=== PATIENT | female | born 1945 | race Caucasian/White ===

== ENCOUNTER 2017-08-28 16:16 | Emergency (ER) | payer OTHER ==
[~2017-08-28] VITALS: Ht 162.6 cm; Wt 68.0 kg
[~2017-08-28 16:16] MED LIST: ACET-787 PO; CLON2TAB PO; FOLI1TAB19 PO; LISI-420 PO; METO50TE2 PO; MIRABULK PO; ORE25 PO; PANT40EC PO; SULF500T6 PO; SYN.075 PO
[2017-08-28 16:30] VITALS: BP 108/52
[2017-08-28] MEDS ORDERED: LIRA6SOL1 SQ (16:37)
[2017-08-28] MEDS ORDERED: GABA300C PO (16:37)
[2017-08-28] MEDS ORDERED: SITA25TA3 PO (16:37)
--- NOTE | 2017-08-28 16:50 | NUR ---
PATIENT PRESENTS TO ED WITH C/O right leg amputation infection; sent from Dr. Hernandez's office for evaluation .Dr. Kirby surgeon, surgery done in 2014;Hx OF DM, breast CA, right breast mastectomy, CVA (2008) . PT STATES DISCHARGES COMING OUT OF STUMP;DENIES ANY FEVER ,NUMBNESS/TINGLING SENSATION ON LT LEG. DENIES N/V/D; SKIN IS PINK/WARM/DRY; AAOX4; HR EVEN AND REGULAR; PT DENIES ANY CP, SOB, OR COUGH AT THIS TIME; PATIENT STATES PAIN OF 0/10 AT THIS TIME;PATIENT POSITIONED FOR COMFORT; HOB ELEVATED; BEDRAILS UP X2; BED DOWN. ER MD MADE AWARE OF PT STATUS.
[2017-08-28] MEDS ORDERED: ceFAZolin 1,000 MG VIAL IM ONE (18:00)
[2017-08-28 18:32] VITALS: BP 105/51
--- NOTE | 2017-08-28 18:32 | NUR ---
Patient discharged with v/s stable. Written and verbal after care instructions given and explained. Patient alert, oriented and verbalized understanding of instructions. Wheel Chair Assisted with to car. All questions addressed prior to discharge. ID band removed. Patient advised to follow up with PMD. Rx of CEPHALEXIN given. Patient educated on indication of medication including possible reaction and side effects. Opportunity to ask questions provided and answered.
== END 2017-08-28 18:32 | disposition home or self-care (01) ==
LOC: MED 16:16
DX: L03.115 Cellulitis of right lower limb (principal); E11.9 Type 2 diabetes mellitus without complications; Z85.3 Personal history of malignant neoplasm of breast; Z86.73 Personal history of transient ischemic attack (TIA), and cerebral infarction without residual deficits
CPT/HCPCS: 82948; 90471; 90715; 96372; 99284; J0690

== ENCOUNTER 2017-09-02 15:58 | Inpatient (IN) | payer OTHER ==
[~2017-09-02] VITALS: Ht 162.6 cm; Wt 68.0 kg
[~2017-09-02 15:58] MED LIST changes: -FOLI1TAB19 PO; +GABA300C PO; +LIRA6SOL1 SQ; -LISI-420 PO; -METO50TE2 PO; +SITA25TA3 PO; -SULF500T6 PO; -SYN.075 PO
[2017-09-02 16:35] VITALS: BP 105/85
[2017-09-02 18:39] LABS: BASOPHILS # (AUTO) 0.3 K/uL (0.00-0.22); BASOPHILS % (AUTO) 2.2 % (0.0-2.0); EOSINOPHILS # (AUTO) 0.3 K/uL (0-0.4); EOSINOPHILS % (AUTO) 2.4 % (0.0-4.0); HEMATOCRIT 37.1 % (36-48); HEMOGLOBIN 12.3 g/dL (12.0-16.0); LYMPHOCYTES # (AUTO) 3.2 K/uL (2.5-16.5); LYMPHOCYTES % (AUTO) 23.2 % (20.5-51.1); MEAN CORPUSCULAR HEMOGLOBIN 27 pg (27-31); MEAN CORPUSCULAR HGB CONC 33 g/dL (33-37); MEAN CORPUSCULAR VOLUME 80 fL (80-94); MONOCYTES # (AUTO) 0.6 K/uL (0.8-1.0); MONOCYTES % (AUTO) 4.2 % (1.7-9.3); NEUTROPHILS # (AUTO) 9.2 K/uL (1.8-7.7); PLATELET COUNT (AUTO) 293 K/uL (140-450); RED BLOOD CELL COUNT(AUTO) 4.62 MIL/uL (4.20-5.40); RED CELL DISTRIBUTION WIDTH 14.5 % (11.6-13.7); WHITE BLOOD COUNT (AUTO) 13.6 K/uL (4.8-10.8)
[2017-09-02 18:42] LABS: ANION GAP 14.6 (8-16); CARBON DIOXIDE 28.5 mmol/L (21-32); CREATININE 1.7 mg/dL (0.6-1.3); POTASSIUM 3.1 mmol/L (3.5-5.1)
[2017-09-02 18:49] LABS: ALBUMIN 2.9 g/dL (3.4-5.0); TOTAL BILIRUBIN 0.4 mg/dL (0.0-1.0)
[2017-09-02 18:54] LABS: PROTHROMBIN TIME 10.9 secs (10.8-13.4)
--- NOTE | 2017-09-02 20:11 | NUR ---
PT WHEELED IN TO ER BED 11
--- NOTE | 2017-09-02 21:00 | NUR ---
Pt came to ED c/o right stump pain 04/13. Pt states her PCP instructed her to seek ED assistance for redness and drainage to right stum. Right stump red, warm with 4cm round open area with thick white colored drainage. Pt states tenderness to left ankle. Left ankle has 3cm round black "scabbed-over" area that is unstagable. VSS. A&Ox4. ER aware. Continue to monitor.
[2017-09-02] MEDS ORDERED: cefTRIAXone 1,000 MG VIAL ONE (21:01)
[2017-09-02] MEDS ORDERED: ONDANSETRON 4 MG/2 ML VIAL IVP PRN (21:10)
[2017-09-02] MEDS ORDERED: DEXTROSE 50% 50 ML SYR IVP PRN (21:10)
[2017-09-02] MEDS ORDERED: VANCOMYCIN PER PHARMACY MC PRN (21:10)
[2017-09-02] MEDS ORDERED: HYDROcodone/APAP 5/325 MG 1 TAB TAB PO PRN (21:10)
--- NOTE | 2017-09-02 21:10 | NUR ---
Pt taken to floor at 2110 with Dario LOPEZ and Mega LOPEZ via [facility].
[2017-09-02] MEDS ORDERED: MORPHINE SULFATE 4 MG/ML SYR IVP ONE (21:20)
[2017-09-02 21:40] VITALS: BP 144/97
--- NOTE | 2017-09-02 21:40 | NUR ---
Admitted from ER TO MED SURGICAL UNIT , with chief complaint of PAIN, SWELLING, DISCHARGE IN THE RIGHT LEG BKA STARTED 5 DAYS AGO, BODY WEAKNESS. 72 y/o ,Female, Cooperative, AWAKE, A/OX4, RESPIRATION EVEN AND UNLABORED. LUNGS CLEAR ON BILATERAL AUSCULTATION. ABDOMEN SOFT WITH POSITIVE BOWEL SOUNDS, STATED ABLE TO HAVE BM EVERY OTHER DAY. IV SALINE LOCK AT THE LEFT HAND G22, PATENT AND INTACT. ABLE TO AMBULATE OCCASIONALLY WITH RIGHT LEG PROSTHESIS AND A WALKER AT HOME. HEAD TO TOE ASSESSMENT DONE WITH CHARGE NURSE TALYA, NOTED RIGHT LEG BKA WITH WOUND COVERED WITH DRESSING, LEFT FOOT WITH PITTING EDEMA 2+, BRUISE IN THE LATERAL SIDE OF LEFT LEG, PRESSURE ULCER AT THE LEFT ANKLE, NO DRAINAGE NOTED. PLAN OF CARE DISCUSSED, VERBALIZED UNDERSTANDING. PAIN IN THE RIGHT LEG 2/10, WAS GIVEN PAIN MED IN ER. SAFETY MEASURES ENFORCED. oriented to call light, bed, phone,television, bathroom, smoking policy, visiting hours, procedures, ID bracelet on. Belongings list checked.
--- NOTE | 2017-09-02 21:45 | NUR ---
Care tranfered to Cecilia LOPEZ in room 115. VSS. Staff and MD alanis.
[2017-09-02] MEDS ORDERED: VANCOMYCIN 1GM/DEXT 5% PREMIX 200 ML IV SCH (22:00)
--- NOTE | 2017-09-02 22:26 | NUR ---
Patient's Plan of Care was discussed and reviewed with BOWLING ALLEY FLOORS INSTALLER: TITI OLIVEIRA
[2017-09-02] MEDS ORDERED: VANCOMYCIN 1,000 MG VIAL ONE (23:19)
[2017-09-02] MEDS ORDERED: POTASSIUM CHLORIDE 10 MEQ TABER PO SCH (23:40)
[2017-09-02] MEDS ORDERED: clonazePAM 0.5 MG TAB PO SCH (23:40)
[2017-09-03] VITALS: BP 136/87
--- NOTE | 2017-09-03 | NUR ---
SLEEPING COMFORTABLY IN BED.
[2017-09-03] MEDS: HYDROcodone/APAP 10/325 MG 1 TAB TAB PO PRN ×4 (00:28→16:57)
[2017-09-03 04:00] VITALS: BP 110/66
--- NOTE | 2017-09-03 04:30 | NUR ---
ASSISTED TO USE BEDPAN, VOIDED 250 ML DARK YELLOW URINE.
[2017-09-03] MEDS: BLOOD GLUCOSE MONITORING 1 DEV DEV FS SCH ×4 (06:13→20:57)
--- NOTE | 2017-09-03 06:30 | NUR ---
CONDITION REMAIN STABLE. TOLERATED ALL IV ANTIBIOTICS GIVEN DURING SHIFT. WILL ENDORSE TO AM NURSE FOR CONTINUITY OF CARE.
[2017-09-03 07:12] LABS: BASOPHILS # (AUTO) 0.1 K/uL (0.00-0.22); BASOPHILS % (AUTO) 1.4 % (0.0-2.0); EOSINOPHILS # (AUTO) 0.5 K/uL (0-0.4); EOSINOPHILS % (AUTO) 5.6 % (0.0-4.0); HEMATOCRIT 32.3 % (36-48); HEMOGLOBIN 10.9 g/dL (12.0-16.0); LYMPHOCYTES # (AUTO) 1.5 K/uL (2.5-16.5); LYMPHOCYTES % (AUTO) 17.7 % (20.5-51.1); MEAN CORPUSCULAR HEMOGLOBIN 27 pg (27-31); MEAN CORPUSCULAR HGB CONC 34 g/dL (33-37); MEAN CORPUSCULAR VOLUME 80 fL (80-94); MONOCYTES # (AUTO) 0.6 K/uL (0.8-1.0); NEUTROPHILS # (AUTO) 5.9 K/uL (1.8-7.7); NEUTROPHILS % (AUTO) 68.3 % (42.2-75.2); PLATELET COUNT (AUTO) 281 K/uL (140-450); RED BLOOD CELL COUNT(AUTO) 4.04 MIL/uL (4.20-5.40); RED CELL DISTRIBUTION WIDTH 14.5 % (11.6-13.7); WHITE BLOOD COUNT (AUTO) 8.6 K/uL (4.8-10.8)
--- NOTE | 2017-09-03 07:15 | NUR ---
ENDORSED TO JOHN GALINDO FOR CONTINUITY OF CARE.
--- NOTE | 2017-09-03 07:16 | NUR ---
REPORT RECEIVED FROM X [employer] WIRING TECHNICIAN NURSE AT BEDSIDE FOR CONTINUITY OF CARE. PATIENT AWAKE, A/OX4, RESPIRATION EVEN AND UNLABORED. LUNGS CLEAR ON BILATERAL AUSCULTATION. ABDOMEN SOFT WITH POSITIVE BOWEL SOUNDS, IV SALINE LOCK #22 TO L HAND, PATENT AND INTACT. ABLE TO AMBULATE OCCASIONALLY WITH RIGHT LEG PROSTHESIS AND A WALKER AT HOME. NOTED RIGHT LEG BKA WITH WOUND COVERED WITH DRESSING, LEFT FOOT WITH PITTING EDEMA 2+, BRUISE IN THE LATERAL SIDE OF LEFT LEG, PRESSURE ULCER AT THE LEFT ANKLE, NO DRAINAGE NOTED. PLAN OF CARE DISCUSSED, PATIENT VERBALIZED UNDERSTANDING. PATIENT DENIES PAIN. SAFETY AND ISOLATION PRECAUTIONS IN PLACE, BED ON LOWEST SETTING, BED ALARM ON, CALL LIGHT WITHIN REACH. WILL CONTINUE TO MONITOR PATIENT.
[2017-09-03 07:43] LABS: ANION GAP 13.8 (8-16); CARBON DIOXIDE 28.7 mmol/L (21-32); POTASSIUM 3.5 mmol/L (3.5-5.1)
[2017-09-03 08:00] VITALS: BP 107/58
[2017-09-03 08:24] LABS: CREATININE 1.4 mg/dL (0.6-1.3)
--- NOTE | 2017-09-03 09:14 | NUR ---
PATIENT HAS BEEN SCREENED AND CATEGORIZED MODERATE NUTRITION RISK. PATIENT WILL BE SEEN WITHIN 3-5 DAYS OF ADMISSION. 09/04/17-09/06/[address] Addendum: 09/05/17 at [address] PATIENT HAS BEEN SCREENED AND CATEGORIZED MODERATE NUTRITION RISK. PATIENT WILL BE SEEN WITHIN 3-5 DAYS OF ADMISSION. 09/04/17-09/06/[address]
[2017-09-03] MEDS: ENOXAPARIN 30 MG/0.3 ML SYR SUBQ SCH (09:38)
[2017-09-03] MEDS: PANTOPRAZOLE 40 MG TABEC PO SCH (09:41)
[2017-09-03] MEDS: GABAPENTIN 300 MG CAP PO SCH ×2 (09:41→21:02)
[2017-09-03] MEDS: HYDROCHLOROTHIAZIDE 25 MG TAB PO SCH (09:41)
--- NOTE | 2017-09-03 10:27 | NUR ---
FAXED INITIAL REVIEW TO [facility] [place] [phone]. CONFIRMED WITH CEDRIC PHONE [phone] FAXED INITIAL REVIEW TO [facility] [phone] CONFIRMED WITH ANGELIA PHONE [phone]
--- NOTE | 2017-09-03 10:54 | NUR ---
PATIENT C/O PAIN 6/10 D/T BACK AND RIGHT STUMP. NORCO PRN MEDICATED. PATIENT TOLERATED IT WELL. SAFETY AND ISOLATION PRECAUTION IN PLACE, BED ON LOWEST SETTING, BED ALARM ON, CALL LIGHT WITHIN REACH, WILL CONTINUE TO MONITOR PATIENT.
--- NOTE | 2017-09-03 12:25 | NUR ---
DR. OLIVEROS IN TO ASSESS THE PATIENT. WILL AWAIT UPDATED ORDERS.
--- NOTE | 2017-09-03 13:33 | NUR ---
Pharmacy Benefit Manager note: I Attempted to contact (Yee) Patient's Home Health provider to confirm company name and office information and contact number. Yee was not available and left her a voicemail MSG with my contact information and requesting a call back.
--- NOTE | 2017-09-03 13:38 | NUR ---
Yee from [facility] call me back and confirm Agency name, office contact information, and services provided to Patient 1x per week. [facility] office number is . I thank her for information, call back and ended call.
[2017-09-03] MEDS: NACL 0.9% 1,000 ML IV SCH (13:50)
--- NOTE | 2017-09-03 14:55 | NUR ---
PATIENT REQUESTED CRACKERS AND PEANUT BUTTER FOR A SNACK. VERIFIED WITH THE STEAM HAMMER OPERATOR, PATIENT GIVEN SNACK.
--- NOTE | 2017-09-03 14:57 | NUR ---
[facility] request to be transfer to [facility] to coordinate Patient's transportation back home for 09/04/17 as she will possibly be discharge. Per Marybeth, Patient has to call and make arrangements. I informed Marybeth My role in the hospital as contact worker and the importance of coordinating patient's services and transport back home after she is discharge. Marybeth stated that she will transfer me to the transportation department and prompt me to leave a message with my contact number if department do not answer so they call back to set a time. No answer from transportation department; I left a Massage and ended call.
--- NOTE | 2017-09-03 15:25 | NUR ---
PATIENT GETTING US OF THE KIDNEYS, WILL AWAIT RESULTS.
[2017-09-03] MEDS: MORPHINE SULFATE 4 MG/ML SYR IVP PRN (15:41)
[2017-09-03] MEDS: INSULIN LISPRO SLIDING SCALE 100 UNITS/ML VIAL SUBQ PRN (16:54)
--- NOTE | 2017-09-03 17:10 | NUR ---
PATIENT LEFT HAND IV INFILTRATED, NEW LEFT HAND IV #20G, INTACT, ASYMPTOMATIC, AND PATENT. PATIENT TOLERATED INSERTION WELL. SAFETY AND ISOLATION PRECAUTIONS IN PLACE, CALL LIGHT WITHIN REACH. WILL CONTINUE TO MONITOR PATIENT.
--- NOTE | 2017-09-03 19:25 | NUR ---
REPORT GIVEN TO HARNESS CUTTER NURSE AT BEDSIDE FOR CONTINUITY OF CARE. PATIENT IN STABLE CONDITION.
--- NOTE | 2017-09-03 19:30 | NUR ---
ASSUMED CARE OF PATIENT, AWAKE, ALERT AND ORIENTED. NO COMPLAINS. FOURDRINIER MACHINE OPERATOR AT BEDSIDE FOR PERICARE AND REPOSITIONED. CALL LIGHT WITHIN REACH.
--- NOTE | 2017-09-03 21:00 | NUR ---
DUE MEDS GIVEN. PLAN OF CARE DISCUSSED WITH PATIENT, VERBALIZED UNDERSTANDING WELL. CALL LIGHT WITHIN REACH.
[2017-09-03] MEDS: clonazePAM 0.5 MG TAB PO SCH (21:01)
[2017-09-03] MEDS: VANCOMYCIN 500 MG in NACL 0.9% 100 ML IV SCH (23:02)
[2017-09-03 23:41] VITALS: BP 123/67
--- NOTE | 2017-09-04 | NUR ---
DR. ROSEN AT BEDSIDE TO SEE PATIENT. ASLEEP EASILY AROUSABLE. AFEBRILE. VITAL SIGNS STABLE. CALL LIGHT WITHIN REACH.
[2017-09-04] MEDS: MORPHINE SULFATE 4 MG/ML SYR IVP PRN ×3 (01:31→21:03)
[2017-09-04] MEDS: NACL 0.9% 1,000 ML IV SCH (01:40)
[2017-09-04] MEDS: BLOOD GLUCOSE MONITORING 1 DEV DEV FS SCH ×4 (05:38→20:19)
[2017-09-04 06:17] LABS: BASOPHILS # (AUTO) 0.1 K/uL (0.00-0.22); BASOPHILS % (AUTO) 1.3 % (0.0-2.0); EOSINOPHILS # (AUTO) 0.4 K/uL (0-0.4); EOSINOPHILS % (AUTO) 5.1 % (0.0-4.0); HEMATOCRIT 33.6 % (36-48); HEMOGLOBIN 11.1 g/dL (12.0-16.0); LYMPHOCYTES # (AUTO) 1.9 K/uL (2.5-16.5); LYMPHOCYTES % (AUTO) 23.1 % (20.5-51.1); MEAN CORPUSCULAR HEMOGLOBIN 27 pg (27-31); MEAN CORPUSCULAR HGB CONC 33 g/dL (33-37); MEAN CORPUSCULAR VOLUME 80 fL (80-94); MONOCYTES # (AUTO) 0.5 K/uL (0.8-1.0); NEUTROPHILS # (AUTO) 5.2 K/uL (1.8-7.7); NEUTROPHILS % (AUTO) 64.5 % (42.2-75.2); PLATELET COUNT (AUTO) 285 K/uL (140-450); RED BLOOD CELL COUNT(AUTO) 4.19 MIL/uL (4.20-5.40); RED CELL DISTRIBUTION WIDTH 14.3 % (11.6-13.7); WHITE BLOOD COUNT (AUTO) 8.1 K/uL (4.8-10.8)
[2017-09-04 06:26] LABS: ALBUMIN 2.4 g/dL (3.4-5.0); ANION GAP 13.3 (8-16); CARBON DIOXIDE 28.5 mmol/L (21-32); CREATININE 1.2 mg/dL (0.6-1.3); POTASSIUM 3.8 mmol/L (3.5-5.1); TOTAL BILIRUBIN 0.2 mg/dL (0.0-1.0)
--- NOTE | 2017-09-04 07:27 | NUR ---
RECEIVED REPORT FROM SENIOR TRAINING SPECIALIST RN. PATIENT IS AAOX4, RESPIRATORY EFFORT IS EVEN AND UNLABORED. NO SIGNS AND SYMPTOMS OF ACUTE DISTRESS NOTED AT THIS TIME. HAS PROSTHESIS AT THE BEDSIDE. RIGHT BKA. HAS IV TO LEFT HAND 20G, INFUSING NS AT 75ML. SITE IS CLEAN, DRY, PATENT AND INTACT. BED IN LOWEST POSITION, SIDE RAILS UP X2, CALL LIGHT PLACED WITHIN REACH. WILL CONTINUE TO MONITOR.
--- NOTE | 2017-09-04 07:27 | NUR ---
ENDORSED CARE AT BEDSIDE WITH SMITH RN, PATIENT IN STABLE CONDITION.
[2017-09-04 08:00] VITALS: BP 126/76
--- NOTE | 2017-09-04 08:00 | NUR ---
WOUND CARE EVALUATION NOTE: REASON FOR EVALUATION: RIGHT BKA STUMP WOUND AND LEFT ANKLE PRESSURE ULCER COMPLETE SKIN ASSESSMENT DONE ON THIS 72 Y/O FEMALE PATIENT ADMITTED TO [facility], WITH INITIAL DIAGNOSIS OF RIGHT STUMP REDNESS WITH DISCHARGE. PAST MEDICAL HISTORY INCLUDE OM S/P RIGHT BKA, CAD, HTN, DM AND RIGHT BREAST CA WITH HX OF MASTECTOMY. ALL ABOVE INFORMATION WAS OBTAINED FROM THE ADMISSION H&P AND PT. PT IS AAX4. LABS ARE WBC 8.1, H/H 11.3/33.6, GLUCOSE 151 AND ALBUMIN 2.4. PATIENT'S SKIN WARM TO TOUCH WNL, SKIN TURGOR GOOD. LEFT FOOT CAPILLARY REFILLED <3 SEC. TOENAILS ARE SHORT AND THICKENED, NO HAIR GROWTH, LEFT DORSAL PEDAL PULSES PRESENT. PT. NEED ASSIST TO BR. INITIAL PLAN OF CARE DISCUSSED WITH PRIMARY RN AND PT. PT VERBALIZE UNDERSTANDING. INTEGUMENTARY: BILATERAL LOWER EXTREMITIES -DRYNESS RIGHT BKA STUMP PRESSURE ULCER INJURY POSSIBLE FROM BOOKKEEPING MACHINE MECHANIC, UN-STAGEABLE 2X2 CM DEPTH UTD, YELLOW SLOUGH WITH SURROUNDING REDNESS 3X2.5CM AND FURTHER DAMAGE INDICATED LEFT ANKLE PRESSURE ULCER INJURY UN-STAGEABLE 2.5X3 CM DEPTH UTD, DRY SCAB WITH SURROUNDING REDNESS 3X3CM FURTHER DAMAGE INDICATED LEFT BUTTOCK MOISTURE ASSOCIATE DERMATITIS 1.5X1 CM RIGHT BUTTOCK MOISTURE ASSOCIATE [id number] CM LEFT TOE AMPUTATION WITH OLD HEALED SURGICAL SCAR RECOMMENDATIONS: -SURGEON TO CONSULT RIGHT STUMP -CLEANSE RIGHT STUMP WITH NS. PAT DRY APPLY THERAHONEY COVER WITH DRY DRESSING QD AND PRN IF SOILING -CLEANSE LEFT ANKLE RY SCAB WITH NS, PAT DRY, PAINT WITH BETADINE MONSERRAT. BID AND LEAVE OPEN TO AIR -APPLY HYDRAGUARD TO BLE DRYNESS AREAS BID WC AND LEAVE IT OPEN TO AIR -CLEANSE L/R BUTTOCKSMAD WITH SOAP AND WATER, PAT DRY AND APPLY Z-GUARD AND COVER WITH OPTIFORM QD AND PRN IF SOILING -TURN AND REPOSITION PATIENT Q 2H -ASSESS AND MONITOR SKIN CONDITION DURING POSITION CHANGE, PLEASE PAY PARTICULAR ATTENTION HEELS -OFFLOAD BILATERAL HEELS BY PLACING PILLOWS UNDER CALVES AT ALL TIMES, UNLESS OTHERWISE CONTRAINDICATED -PRESSURE REDISTRIBUTION SURFACE THERAPY -PODIATRY CONSULT -KEEP SKIN CLEAN AND DRY AT ALL TIMES. MAY APPLY BODY LOTION TO DRYNESS AREA. RECOMMENDATIONS DISCUSSED WITH PRIMARY RN WILL FOLLOW UP PATIENT Q7- 10 DAYS AND PRN. PLEASE CONTACT WOUND CARE NURSE FOR ANY CONCERNS, QUESTIONS AND CHANGES IN SKIN CONDITION.
[2017-09-04] MEDS: GABAPENTIN 300 MG CAP PO SCH ×2 (09:14→20:16)
[2017-09-04] MEDS: HYDROCHLOROTHIAZIDE 25 MG TAB PO SCH (09:15)
[2017-09-04] MEDS: PANTOPRAZOLE 40 MG TABEC PO SCH (09:16)
[2017-09-04] MEDS: ENOXAPARIN 30 MG/0.3 ML SYR SUBQ SCH (09:21)
[2017-09-04] MEDS ORDERED: THERAHONEY GEL 42.5 GM TP PRN (11:50)
[2017-09-04] MEDS ORDERED: Z-GUARD PASTE TP PRN (11:50)
[2017-09-04] MEDS: Z-GUARD PASTE TP SCH (13:00)
[2017-09-04] MEDS: THERAHONEY GEL 42.5 GM TP SCH (13:00)
[2017-09-04] MEDS: HYDRAGUARD CREAM TP SCH (13:00)
[2017-09-04] MEDS: NACL 0.9% IRR 250 ML BOTTLE IR SCH (13:00)
--- NOTE | 2017-09-04 14:17 | NUR ---
CM NOTE CONCURRENT REVIEW FAXED TO [facility] (FAX# [phone], ATTN: CEDRIC [phone]) AND [facility] (FAX# [phone], ATTN: ANGELIA [phone] X [phone])
--- NOTE | 2017-09-04 14:24 | NUR ---
CM NOTE SPOKE W/ SOPHIE STEELE FOR [facility] (# [phone]). MADE AWARE OF DISCHARGE PLAN TO SNF FOR WOUND CARE. WILL FAX LIST OF CONTRACTED FACILITIES; WAS PREVIOUSLY AT [facility].
--- NOTE | 2017-09-04 15:48 | NUR ---
SOPHIE WEBSTER FAXED CLINICAL INFORMATION TO [facility] / FAX# [phone], ATTN: DANYEL #[phone] FAXED CLINICAL INFORMATION TO [facility] / FAX# [phone], ATTN: TAMI #[phone] FAXED CLINICAL INFORMATION TO [facility] / FAX# [phone], ATTN: JOVANNI #[phone]
[2017-09-04 16:00] VITALS: BP 129/79
--- NOTE | 2017-09-04 19:28 | NUR ---
ENDORSED PATIENT TO CHAPERON NURSE FOR CONTINUITY OF CARE. PATIENT IN STABLE CONDITION.
--- NOTE | 2017-09-04 19:29 | NUR ---
Patient's Plan of Care was discussed and reviewed with RESIDENTIAL SUPPORT SPECIALIST: CARL WILKINSON
--- NOTE | 2017-09-04 19:40 | NUR ---
PATIENT IS CURRENTLY RESTING IN BED ASSISTED TO USE THE BEDPAN PATIENT HAS A RT BKA COVERED WITH A DRESSING AND HAS A DRESSING. PATIENT'S LEFT ANKLE HAS A WOUND THAT IS DRY AND UNSTAGEABLE.PATIENT HAS A DRESSING TO LEFT UPPER BUTTOCK CURRENTLY DRY AND INTACT. PATIENT EDUCATED TO TURN AND REPOSITION PATIENT IS ABLE TO FOLLOW DIRECTIONS.OFFLOADING DONE WITH PILLOWS.IVF INFUSING WELL WILL CONTINUE TO MONITOR.
[2017-09-04 20:00] VITALS: BP 124/62
[2017-09-04] MEDS: clonazePAM 0.5 MG TAB PO SCH (20:19)
[2017-09-04] MEDS: INSULIN LISPRO SLIDING SCALE 100 UNITS/ML VIAL SUBQ PRN (20:21)
--- NOTE | 2017-09-04 20:30 | NUR ---
PATIENT CONTINUES TO BE ASSISTED WITH THE BEDPAN GOOD PERICARE GIVEN. CALL LIGHT WITHIN REACH WILL CONTINUE TO MONITOR.
--- NOTE | 2017-09-04 21:44 | NUR ---
PATIENT WAS TAKEN FOR CT PROCEDURE MARIANELA TOOK THE PATIENT.
--- NOTE | 2017-09-04 22:00 | NUR ---
PATIENT BROUGHT BACK FROM CT TEST AND BACK IN ROOM.
[2017-09-04] MEDS: VANCOMYCIN 500 MG in NACL 0.9% 100 ML IV SCH (22:47)
[2017-09-04] MEDS: HYDROcodone/APAP 10/325 MG 1 TAB TAB PO PRN (23:01)
--- NOTE | 2017-09-04 23:55 | NUR ---
I RECEIVED THE FAX REPORT FOR CT EXT LOWER AND I CALLED [employer] AND PAGED MD DELAROSA MACHINIST OUTSIDE FOR MD OLIVEROS EARLIER. CURRENTLY MD DELAROSA CALLED ME BACK AND I INFORMED HIM AND READ TO HIM THE RADIOLOGY REPORT AND ARSH AWARE AND GAVE NO NEW ORDER.
--- NOTE | 2017-09-05 00:41 | NUR ---
PATIENT IS CURRENTLY NPO AT THIS TIME. SLEEPING IN BED,IVF INFUSING WELL.CALL LIGHT WITHIN REACH.
[2017-09-05] MEDS: Z-GUARD PASTE TP SCH ×2 (01:11→13:50)
[2017-09-05] MEDS: HYDRAGUARD CREAM TP SCH ×2 (01:11→13:48)
[2017-09-05] MEDS: NACL 0.9% IRR 250 ML BOTTLE IR SCH ×2 (01:12→13:00)
--- NOTE | 2017-09-05 02:10 | NUR ---
PATIENT SLEEPING QUIETLY REMAINS NPO. NEEDS MET.CALL LIGHT WITHIN REACH.
--- NOTE | 2017-09-05 02:35 | NUR ---
PATIENT IS ASLEEP IN BED AT THIS TIME. NEEDS MET WILL CONTINUE TO MONITOR.CALL LIGHT WITHIN REACH.
--- NOTE | 2017-09-05 04:55 | NUR ---
PATIENT WAS CLEANED BEDDING CHANGED WITH THE ASSISTANCE OF ASHLEY PADRON. PATIENT HAS PERIODS OF FORGETFULNESS AND NOT KNOWING WHERE SHE IS.PATIENT WAS REORIENTED TO REALITY AND EDUCATED NOT TO GET OUT OF BE FOR HER SAFETY.WILL CONTINUE TO MONITOR.
[2017-09-05 05:00] VITALS: BP 156/66
--- NOTE | 2017-09-05 06:00 | NUR ---
PATIENT STABLE WATCHING TV SLEEPING ON AND OFF PATIENT IS AWARE SHE WILL HAVE PROCEDURE BEFORE 9AM THIS MORNING AND CONTINUES TO BE NPO.
[2017-09-05] MEDS: BLOOD GLUCOSE MONITORING 1 DEV DEV FS SCH ×4 (06:53→20:47)
[2017-09-05 07:02] LABS: BASOPHILS # (AUTO) 0.3 K/uL (0.00-0.22); BASOPHILS % (AUTO) 3.8 % (0.0-2.0); EOSINOPHILS # (AUTO) 0.5 K/uL (0-0.4); EOSINOPHILS % (AUTO) 5.2 % (0.0-4.0); HEMATOCRIT 33.9 % (36-48); HEMOGLOBIN 11.3 g/dL (12.0-16.0); LYMPHOCYTES # (AUTO) 2.2 K/uL (2.5-16.5); LYMPHOCYTES % (AUTO) 25.2 % (20.5-51.1); MEAN CORPUSCULAR HEMOGLOBIN 26 pg (27-31); MEAN CORPUSCULAR HGB CONC 33 g/dL (33-37); MEAN CORPUSCULAR VOLUME 79 fL (80-94); MONOCYTES # (AUTO) 0.5 K/uL (0.8-1.0); MONOCYTES % (AUTO) 5.5 % (1.7-9.3); NEUTROPHILS # (AUTO) 5.4 K/uL (1.8-7.7); NEUTROPHILS % (AUTO) 60.3 % (42.2-75.2); PLATELET COUNT (AUTO) 263 K/uL (140-450); RED BLOOD CELL COUNT(AUTO) 4.28 MIL/uL (4.20-5.40); RED CELL DISTRIBUTION WIDTH 14.2 % (11.6-13.7); WHITE BLOOD COUNT (AUTO) 8.9 K/uL (4.8-10.8)
--- NOTE | 2017-09-05 07:13 | NUR ---
REPORT ENDORSED TO JOHN SMITH SHE WILL RESUME CARE OF THE PATIENT.CALL LIGHT WITHIN REACH.
--- NOTE | 2017-09-05 07:14 | NUR ---
RECEIVED REPORT FROM JET ENGINE MECHANIC RN. PATIENT IS AAOX4, RESPIRATORY EFFORT IS EVEN AND UNLABORED. NO SIGNS AND SYMPTOMS OF ACUTE DISTRESS NOTED AT THIS TIME. HAS PROSTHESIS AT THE BEDSIDE. RIGHT BKA. HAS IV TO LEFT HAND 20G, INFUSING NS AT 75ML. SITE IS CLEAN, DRY, PATENT AND INTACT. BED IN LOWEST POSITION, SIDE RAILS UP X2, CALL LIGHT PLACED WITHIN REACH. WILL CONTINUE TO MONITOR.
[2017-09-05 07:15] LABS: ALBUMIN 2.5 g/dL (3.4-5.0); ANION GAP 12.2 (8-16); CARBON DIOXIDE 28.4 mmol/L (21-32); CREATININE 1.2 mg/dL (0.6-1.3); POTASSIUM 3.6 mmol/L (3.5-5.1); TOTAL BILIRUBIN 0.2 mg/dL (0.0-1.0)
[2017-09-05 08:00] VITALS: BP 128/73
[2017-09-05] MEDS: PANTOPRAZOLE 40 MG TABEC PO SCH (08:00)
[2017-09-05] MEDS: ENOXAPARIN 30 MG/0.3 ML SYR SUBQ SCH (09:00)
[2017-09-05] MEDS: GABAPENTIN 300 MG CAP PO SCH ×2 (09:00→20:48)
[2017-09-05] MEDS: HYDROCHLOROTHIAZIDE 25 MG TAB PO SCH (09:00)
[2017-09-05] MEDS ORDERED: BUPIVACAINE-MPF 0.25% 30 ML VIAL INJ ONE (09:04)
[2017-09-05] MEDS ORDERED: BACITRACIN 50000 UNITS/1 VIAL ONE (09:04)
[2017-09-05] MEDS ORDERED: ONDANSETRON 4 MG/2 ML VIAL ONE (09:10)
[2017-09-05] MEDS ORDERED: PROPOFOL 200 MG/20 ML VIAL IV ONE (09:10)
[2017-09-05] MEDS ORDERED: MIDAZOLAM 2 MG/2 ML VIAL ONE (09:10)
[2017-09-05] MEDS ORDERED: DEXAMETHASONE 4 MG/ML VIAL ONE (09:10)
[2017-09-05] MEDS ORDERED: SEVOFLURANE 250 ML BTL INH ONE (09:10)
[2017-09-05] MEDS ORDERED: MEPERIDINE 50 MG/ML SYR ONE (09:11)
[2017-09-05] MEDS ORDERED: fentaNYL 0.05 MG/ML VIAL ONE (09:11)
[2017-09-05] MEDS: NACL 0.9% 1,000 ML IV SCH ×2 (09:49→20:36)
[2017-09-05] MEDS ORDERED: ONDANSETRON 4 MG/2 ML VIAL IVP PRN (09:50)
[2017-09-05] MEDS ORDERED: diphenhydrAMINE 50 MG/ML VIAL IVP PRN (09:50)
[2017-09-05] MEDS ORDERED: HYDROmorphone 1 MG/ML AMP IVP PRN (09:50)
[2017-09-05] MEDS: MEPERIDINE 25 MG/ML SYR IVP PRN ×4 (10:38→11:08)
[2017-09-05] MEDS ORDERED: MEPERIDINE 25 MG/ML SYR ONE ×2 (10:38→10:56)
--- NOTE | 2017-09-05 10:57 | NUR ---
[facility]ED [facility] [phone] PHONE CEDRIC [phone] FAXED CONCURRENT REVIEW TO [facility] [phone] PHONE ANGELIA [phone] RECEIVED A CALL FROM ANDREW FROM [facility] ([facility]. THEY CAN ACCEPT THE PATIENT SPOKE WITH DANYEL FROM [facility], THEY ARE REVIEWING THE INQUIRY.
--- NOTE | 2017-09-05 11:25 | NUR ---
PATIENT ARRIVED ON UNIT FROM SURGERY. HAS SUTURE AND CHANDA ON STUMP, WRAPPED IN BANDAGE AND IRLANDA WRAP, A SOCK WAS APPLIED TO HOLD DRESSING IN PLACE. PATIENTS VITAL SIGNS ARE STABLE, NO SIGNS AND SYMPTOMS OF ACUTE DISTRESS NOTED AT THIS TIME. WILL CONTINUE TO MONITOR.
--- NOTE | 2017-09-05 11:54 | NUR ---
SPOKE WITH ANDREW FROM [facility],([place]). THE PATIENT CAN GO TO ROOM 21A UNDER DR[address] WESTON. PHONE [phone]. ANDREW FROM [facility] SAID SHE WOULD NEED AN AUTH [employer] [facility]. I CALLED [facility] AND SPOKE WITH CEDRIC AND INFORMED HER. SHE SAID SHE WOULD CALL [facility], CEDRIC ,PHONE [phone]. I SPOKE WITH CEDRIC AND SHE SAID FOR TRANSPORT, USE WITH [employer] OR [employer]. NO AUTH NEEDED PER CEDRIC.
[2017-09-05] MEDS ORDERED: HYDROmorphone PFS 2 MG/ML SYR IVP PRN (12:26)
[2017-09-05] MEDS: MORPHINE SULFATE 4 MG/ML SYR IVP PRN ×2 (12:28→20:49)
[2017-09-05] MEDS: THERAHONEY GEL 42.5 GM TP SCH (13:00)
[2017-09-05] MEDS: INSULIN LISPRO SLIDING SCALE 100 UNITS/ML VIAL SUBQ PRN ×3 (13:43→20:50)
--- NOTE | 2017-09-05 14:51 | NUR ---
RECEIVED A CALL FROM ANDREW FROM [facility]. SHE SAID SHE RECEIVED THE AUTH FROM [employer]. I GAVE ANDREW THE PHONE NUMBER TO THE FLOOR. [facility] [address] [place] [id number] PHONE [phone]. WHEN DISCHARGED, SHE CAN GO TO ROOM 21A UNDER . CEDRIC FROM [employer], [id number] , SAID FOR TRANSPORT USE EITHER [facility] OR [employer] AND SHE SAID NO AUTH NEEDED.
[2017-09-05 16:00] VITALS: BP 124/71
--- NOTE | 2017-09-05 17:14 | NUR ---
I spoke to patient to inform her about plan to be discharge to a [facility] nursing facility and been accepted at [facility]. Patient stated feeing positive, about SNF and feels is the better choice for her care and progress. Patient thank me.
[2017-09-05] MEDS: HYDROcodone/APAP 10/325 MG 1 TAB TAB PO PRN (17:25)
[2017-09-05] MEDS ORDERED: VANCOMYCIN 750 MG in DEXTROSE 5% 250 ML IV SCH (18:00)
--- NOTE | 2017-09-05 19:25 | NUR ---
ENDORSED PATIENT TO BRIEFCASE SEWER RN FOR CONTINUITY OF CARE. PATIENT IN STABLE CONDITION.
--- NOTE | 2017-09-05 19:30 | NUR ---
RECEIVED REPORT FROM AM NURSE. PT RESTING IN BED, AOX4, BEDREST AT THIS TIME, ABLE TO VERBALIZE NEEDS. PT IS S/P R BKA REVISION, DRESSING CLEAN DRY AND INTACT, ELEVATED WITH PILLOWS. L FOOT WOUND NOTED, HEEL PROTECTOR IN PLACE. IV ACCESS ASYMPTOMATIC, PATENT AND INTACT. IVF INFUSING WELL. DISCUSSED PLAN OF CARE WITH PT. PT VERBALIZED UNDERSTANDING. ALL NEEDS MET. SAFETY MEASURES ENSURED. CALL LIGHT WITHIN REACH.
[2017-09-05 20:00] VITALS: BP 113/53
[2017-09-05] MEDS: CEFEPIME 1,000 MG in DEXTROSE 5% 50 ML IV SCH (20:47)
[2017-09-05] MEDS: clonazePAM 0.5 MG TAB PO SCH (20:49)
--- NOTE | 2017-09-05 20:55 | NUR ---
BLOOD GLUCOSE 210, ADMINISTERED INSULIN COVERAGE WITH EVENING SNACK AND EDUCATION. PT C/O R STUMP PAIN, ADMINISTERED MORPHINE IVP PRN ORDERED WITH EDUCATION. ADMINISTERED REMAINING DUE MEDS WITH EDUCATION. PT VERBALIZED UNDERSTANDING, TOLERATED MEDS WELL. ALL NEEDS MET. IVPB INFUSING WELL. SAFETY MEASURES ENSURED. CALL LIGHT WITHIN REACH.
--- NOTE | 2017-09-05 22:00 | NUR ---
DR ROSEN AT BEDSIDE TO SPEAK WITH PT. SPOKE WITH PT REGARDING CONTINUED IV SNF ABX FOR 6 WEEKS, PT WILL NEED PICC LINE INSERTION ORDERED. CHARGE NURSE MADE AWARE, CAUSTIC OPERATOR TO CALL PICC LINE NURSE.
[2017-09-06] VITALS: BP 105/61
[2017-09-06] MEDS: Z-GUARD PASTE TP SCH ×2 (00:50→12:24)
[2017-09-06] MEDS: NACL 0.9% IRR 250 ML BOTTLE IR SCH ×2 (00:50→12:23)
[2017-09-06] MEDS: HYDRAGUARD CREAM TP SCH ×2 (00:50→12:24)
--- NOTE | 2017-09-06 00:51 | NUR ---
PT RESTING COMFORTABLY, SPO2 95% ON ROOM AIR, RR 18 EVEN AND UNLABORED. SACRAL WOUND CLEANSED, Z-GUARD APPLIED, COVERED WITH OPTIFOAM. L FOOT WOUND CLEANSED WITH NS AND GAUZE, PAT DRY, BETADINE APPLIED, DESKTOP OPERATOR. UNABLE TO FIND HYDRAGUARD FOR BLE DRYNESS. ASSISTED PT TO TURN AND REPOSITION SELF, PT TOLERATED WELL. ALL NEEDS MET. IVF INFUSING WELL. SAFETY MEASURES ENSURED.
--- NOTE | 2017-09-06 04:17 | NUR ---
PT ASSISTED TO BEDPAN BY ROOFING PLANT SUPERVISOR, PT TOLERATED WELL. IV ACCESS INFILTRATED, L HAND/WRIST SWELLING NOTED, WILL MONITOR. IV REMOVED, CANNULA INTACT. ALL NEEDS MET. SAFETY MEASURES ENSURED. CALL LIGHT WITHIN REACH.
[2017-09-06] MEDS: NACL 0.9% 1,000 ML IV SCH ×2 (05:35→15:49)
[2017-09-06] MEDS: MORPHINE SULFATE 4 MG/ML SYR IVP PRN ×3 (05:35→20:24)
--- NOTE | 2017-09-06 05:40 | NUR ---
NEW IV 24G INSERTED ON L FA, PT TOLERATED WELL. PT C/O R STUMP PAIN, ADMINISTERED MORPHINE IVP 4MG IVP PRN ORDERED WITH EDUCATION. PT REQUESTING TO SHOWER, MADE PT AWARE THAT DR LOCKHART STILL NEEDS TO SEE HER STUMP TODAY, WILL ENDORSE TO AM NURSE. ALL NEEDS MET. SAFETY MEASURES ENSURED. CALL LIGHT WITHIN REACH.
[2017-09-06 06:06] LABS: APPEARANCE,URINE CLEAR (CLEAR); BILIRUBIN,URINE NEGATIVE (NEGATIVE); BLOOD, URINE NEGATIVE (NEGATIVE); COLOR,URINE YELLOW (YELLOW); LEUKOCYTE ESTERASE ,URINE NEGATIVE (NEGATIVE); NITRITE, URINE NEGATIVE (NEGATIVE); UGLUCOSE NEGATIVE (NEGATIVE)
[2017-09-06 06:22] LABS: RBC,URINE 0-5 (RARE) /HPF (0-5); WBC,URINE 0-5 (RARE) /HPF (0-5)
--- NOTE | 2017-09-06 06:38 | NUR ---
[employer] SENIOR SERGEANT CALLED AND LEFT MESSAGE FOR PICC LINE NURSE.
[2017-09-06 06:46] LABS: BASOPHILS # (AUTO) 0.1 K/uL (0.00-0.22); BASOPHILS % (AUTO) 0.4 % (0.0-2.0); EOSINOPHILS # (AUTO) 0.1 K/uL (0-0.4); EOSINOPHILS % (AUTO) 0.7 % (0.0-4.0); HEMATOCRIT 30.5 % (36-48); LYMPHOCYTES # (AUTO) 1.4 K/uL (2.5-16.5); LYMPHOCYTES % (AUTO) 10.5 % (20.5-51.1); MEAN CORPUSCULAR HEMOGLOBIN 27 pg (27-31); MEAN CORPUSCULAR HGB CONC 33 g/dL (33-37); MEAN CORPUSCULAR VOLUME 81 fL (80-94); MONOCYTES # (AUTO) 0.4 K/uL (0.8-1.0); MONOCYTES % (AUTO) 3.2 % (1.7-9.3); NEUTROPHILS # (AUTO) 11.8 K/uL (1.8-7.7); NEUTROPHILS % (AUTO) 85.2 % (42.2-75.2); PLATELET COUNT (AUTO) 322 K/uL (140-450); RED BLOOD CELL COUNT(AUTO) 3.76 MIL/uL (4.20-5.40); RED CELL DISTRIBUTION WIDTH 14.5 % (11.6-13.7); WHITE BLOOD COUNT (AUTO) 13.8 K/uL (4.8-10.8)
[2017-09-06 07:01] LABS: ALBUMIN 2.4 g/dL (3.4-5.0); ANION GAP 15.4 (8-16); CARBON DIOXIDE 24.9 mmol/L (21-32); CREATININE 1.2 mg/dL (0.6-1.3); POTASSIUM 4.3 mmol/L (3.5-5.1); TOTAL BILIRUBIN 0.1 mg/dL (0.0-1.0)
[2017-09-06] MEDS: BLOOD GLUCOSE MONITORING 1 DEV DEV FS SCH ×4 (07:05→20:19)
[2017-09-06] MEDS: INSULIN LISPRO SLIDING SCALE 100 UNITS/ML VIAL SUBQ PRN ×3 (07:10→20:31)
--- NOTE | 2017-09-06 07:15 | NUR ---
ENDORSED PLAN OF CARE TO AM NURSE. CONDITION STABLE.
--- NOTE | 2017-09-06 07:28 | NUR ---
ENDORSEMENT RECEIVED FROM ACID FILLER NURSE. PATIENT IS AWAKE, ALERT. RESPIRATION EVEN, UNLABOR ON ROOM AIR. SKIN DRY AND WARM. DENIED PAIN, SOB AT THIS TIME. IV PATENT AND INTACT. PLAN OF CARE WAS DISCUSSED WITH THE PATIENT. BED AT LOW POSITION, UPPER SIDE RAILS UP.
[2017-09-06 08:00] VITALS: BP 121/68
[2017-09-06] MEDS: PANTOPRAZOLE 40 MG TABEC PO SCH (08:31)
[2017-09-06] MEDS: GABAPENTIN 300 MG CAP PO SCH ×2 (08:31→20:22)
[2017-09-06] MEDS: CEFEPIME 1,000 MG in DEXTROSE 5% 50 ML IV SCH ×2 (08:31→20:19)
[2017-09-06] MEDS: HYDROCHLOROTHIAZIDE 25 MG TAB PO SCH (08:31)
[2017-09-06] MEDS: ENOXAPARIN 30 MG/0.3 ML SYR SUBQ SCH (08:39)
--- NOTE | 2017-09-06 10:14 | NUR ---
PICC LINE CONSENT WAS OBTAINED AT BEDSIDE, SIGNED BY THE PATIENT. PATIENT VERBALIZED UNDERSTANDING OF THE PROCEDURE. PHYSICIAN SIGNED BY DR. MATHUR
--- NOTE | 2017-09-06 10:43 | NUR ---
SPOKE TO AIDAN, PICC LINE NURSE. SHE IS UNABLE TO COME TILL 4PM TODAY. WILL CONTINUE TO FOLLOW UP
--- NOTE | 2017-09-06 12:00 | NUR ---
CALLED TO THE PICC LINE NURSE AGAIN. PICC NURSE IS UNABLE TO COME BEFORE 4PM PER MARCELLA, [employer]
[2017-09-06] MEDS: THERAHONEY GEL 42.5 GM TP SCH (12:24)
--- NOTE | 2017-09-06 12:30 | NUR ---
PATIENT IS AWAKE, ALERT, EATING LUNCH. NO DISTRESS NOTED AT THIS TIME. DENIED PAIN. MED WAS GIVEN PER ORDER. CALL LIGHT WITHIN REACH
--- NOTE | 2017-09-06 14:00 | NUR ---
PATIENT IS AWAKE, ALERT. RESPIRATION EVEN, UNLABOR ON ROOM AIR. COMPLAINED OF PAIN 9/10 ON RIGHT STUMP. WILL MEDICATE PER ORDER. CALL LIGHT WITHIN REACH
[2017-09-06 16:00] VITALS: BP 143/69
--- NOTE | 2017-09-06 16:00 | NUR ---
ARRANGED TRANSPORT WITH [facility] , [facility] WILL CALL. STILL WAITING FOR PICK LINE
--- NOTE | 2017-09-06 16:30 | NUR ---
PATIENT IS AWAKE, ALERT. RESPIRATION EVEN, UNLABOR. DENIED PAIN AT THIS TIME. NO DISTRESS NOTED. CALL LIGHT WITHIN REACH
[2017-09-06] MEDS ORDERED: CEFE1PDS IV (17:06)
--- NOTE | 2017-09-06 17:26 | NUR ---
CALLED AND GAVE REPORT TO DEANDRE FROM [facility]. NOTIFIED PATIENT'S SPOUSE NANCY VARGAS REGARDING HER TRANSFER.
--- NOTE | 2017-09-06 17:28 | NUR ---
SPOKE TO JOVANNI, ADMINISTRATION FROM [facility], PATIENT'S ROOM IS NOW CHANGED TO 41A DUE TO ISOLATION
--- NOTE | 2017-09-06 18:07 | NUR ---
PATIENT IS AWAKE, ALERT, EATING DINNER. RESPIRATION EVEN, UNLABOR. IV PATENT AND INTACT. DENIED PAIN, SOB AT THIS TIME. CALL LIGHT WITHIN REACH
--- NOTE | 2017-09-06 18:40 | NUR ---
PICC LINE NURSE IS AT BEDSIDE. PICC LINE KIT WAS PROVIDED.
--- NOTE | 2017-09-06 18:53 | NUR ---
PATIENT INSTRUCTION AND PRESCRIPTION WERE GIVEN TO THE PATIENT. PATIENT VERBALIZED UNDERSTANDING.
--- NOTE | 2017-09-06 19:09 | NUR ---
ENDORSEMENT GIVEN TO THE SCREEN MAKING TECHNICIAN NURSE. PATIENT IS STABLE AT THIS TIME.
--- NOTE | 2017-09-06 19:20 | NUR ---
RECEIVED REPORT FROM AM NURSE. PICC LINE NURSE IS AT BEDSIDE. PT RESTING IN BED, AOX4, PT IS ABLE TO SIT UP IN BED WITH ASSIST, ABLE TO VERBALIZE NEEDS. PT IS S/P R BKA REVISION, DRESSING CLEAN DRY AND INTACT, ELEVATED WITH PILLOWS. L FOOT WOUND NOTED, HEEL PROTECTOR IN PLACE. SACRAL DRESSING NOTED, CLEAN DRY AND INTACT. IV ACCESS ASYMPTOMATIC, PATENT AND INTACT. IVF INFUSING WELL. PT HAS ALREADY RECEIVED DISCHARGE INSTRUCTIONS FROM AM NURSE. ALL NEEDS MET. SAFETY MEASURES ENSURED. CALL LIGHT WITHIN REACH.
[2017-09-06] MEDS: clonazePAM 0.5 MG TAB PO SCH (20:30)
--- NOTE | 2017-09-06 20:31 | NUR ---
PICC LINE NURSE AT BEDSIDE, CONFIRMED POSITIVE PLACEMENT OF L UPPER ARM PICC, 2 LUMEN, BLOOD RETURN ON BOTH, FLUSHES WELL. BLOOD GLUCOSE 195, INSULIN COVERAGE ADMINISTERED WITH SNACK AND EDUCATION. PT C/O R STUMP PAIN, ADMINISTERES MORPHINE 4MG IVP PRN WITH EDUCATION. ADMINISTERED REMAINING DUE MEDS WITH EDUCATION. PT VERBALIZED UNDERSTANDING, TOLERATED MEDS WELL. ASSISTED PT TO BEDPAN, TOLERATED WELL. PT CHANGED INTO [place] FOR TRANSFER BY CNAs. ALL NEEDS MET. SAFETY MEASURES ENSURED. CALL LIGHT WITHIN REACH.
--- NOTE | 2017-09-06 21:15 | NUR ---
CALLED OBIE FROM [facility], REPORTED THAT PT HAS L UPPER ARM PICC AND NOTED THAT PT'S DISCHARGE PRESCRIPTION IS PLACED ON TRANSFER FOLDER. DISCUSSED PT CONDITION. MADE RN AWARE THAT PT'S ABX IS MAXIPIME 1000MG IVPB Q12H FOR 6 WEEKS. PM MEDS HAVE BEEN GIVEN. NOTIFIED THAT TRANSPORT WILL ARRIVE TO [facility] IN APPROXIMATELY 40 MINS.
--- NOTE | 2017-09-06 21:25 | NUR ---
L FA IV ACCESS REMOVED, CANNULA INTACT, PT TOLERATED WELL. PT CONDITION STABLE. ALL BELONGINGS GATHERED ALONG WITH PT'S PROSTHESIS. PT DISCHARGED ACCOMPANIED BY TRANSPORT AT THIS TIME.
== END 2017-09-06 21:25 | DRG 498 ==
LOC: MED 15:58 → MTU 21:18
PROVIDERS: ADMIT Hospitalist; ATTEND Hospitalist
PROC: 0QBB0ZZ Excision of Right Lower Femur, Open Approach (ICD-10-PCS; principal; 2017-09-05 08:45)
PROC: 02HV33Z Insertion of Infusion Device into Superior Vena Cava, Percutaneous Approach (ICD-10-PCS; 2017-09-06)
PROC: B548ZZA Ultrasonography of Superior Vena Cava, Guidance (ICD-10-PCS; 2017-09-06)
DX: T87.43 Infection of amputation stump, right lower extremity (principal); L03.115 Cellulitis of right lower limb; E11.22 Type 2 diabetes mellitus with diabetic chronic kidney disease; E11.51 Type 2 diabetes mellitus with diabetic peripheral angiopathy without gangrene; M86.18 Other acute osteomyelitis, other site; I69.354 Hemiplegia and hemiparesis following cerebral infarction affecting left non-dominant side; E11.621 Type 2 diabetes mellitus with foot ulcer; N18.9 Chronic kidney disease, unspecified; E11.69 Type 2 diabetes mellitus with other specified complication; I25.10 Atherosclerotic heart disease of native coronary artery without angina pectoris; E03.9 Hypothyroidism, unspecified; E78.5 Hyperlipidemia, unspecified; B96.20 Unspecified Escherichia coli [E. coli] as the cause of diseases classified elsewhere; B96.5 Pseudomonas (aeruginosa) (mallei) (pseudomallei) as the cause of diseases classified elsewhere; S91.301A Unspecified open wound, right foot, initial encounter; I12.9 Hypertensive chronic kidney disease with stage 1 through stage 4 chronic kidney disease, or unspecified chronic kidney disease; K21.9 Gastro-esophageal reflux disease without esophagitis; Y83.5 Amputation of limb(s) as the cause of abnormal reaction of the patient, or of later complication, without mention of misadventure at the time of the procedure; Z85.3 Personal history of malignant neoplasm of breast; Z86.14 Personal history of Methicillin resistant Staphylococcus aureus infection; Z89.422 Acquired absence of other left toe(s); Z90.11 Acquired absence of right breast and nipple; Z98.1 Arthrodesis status; Y93.89 Activity, other specified; Y92.89 Other specified places as the place of occurrence of the external cause; Y99.8 Other external cause status; Z90.49 Acquired absence of other specified parts of digestive tract
CPT/HCPCS: 36415; 71045; 72220; 73700; 76770; 80048; 80053; 80202; 81001; 82550; 82948; 83605; 83880; 84484; 85025; 85610; 85730; 87040; 87070; 87081; 87086; 87186; 93005; 96365; 96375; 99285; C1751; J0692; J0696; J1100; J1650; J1815; J2175; J2250; J2270; J2405; J2704; J3010; J3370; J3490; J7030; J7060; Q0092

== ENCOUNTER 2017-09-11 16:34 | Inpatient (IN) | payer OTHER ==
[~2017-09-11] VITALS: Ht 162.6 cm; Wt 68.9 kg
[2017-09-11 16:34] VITALS: BP 131/71
[~2017-09-11 16:34] MED LIST changes: +CEFE1PDS IV
--- NOTE | 2017-09-11 16:52 | NUR ---
PT BIBA TO BED 11.
--- NOTE | 2017-09-11 17:33 | NUR ---
Lying on bed, co pain on right stump since pt got new prostasis on right lower extrimity. Pt speaks full sentences, follows command. no sob, lung sound clear, breathing even, abdomen round and soft, no n/v/d. skin intact, warm and dry. Denies fever and chills.
[2017-09-11] MEDS ORDERED: NACL 0.9% 500 ML IV SCH (18:00)
[2017-09-11] MEDS ORDERED: ACETAMINOPHEN 325 MG TAB PO ONE (18:00)
[2017-09-11 18:47] LABS: BASOPHILS # (AUTO) 0.1 K/uL (0.00-0.22); EOSINOPHILS # (AUTO) 0.4 K/uL (0-0.4); EOSINOPHILS % (AUTO) 3.5 % (0.0-4.0); HEMATOCRIT 33.3 % (36-48); LYMPHOCYTES # (AUTO) 1.7 K/uL (2.5-16.5); MEAN CORPUSCULAR HEMOGLOBIN 26 pg (27-31); MEAN CORPUSCULAR HGB CONC 33 g/dL (33-37); MEAN CORPUSCULAR VOLUME 80 fL (80-94); MONOCYTES # (AUTO) 0.8 K/uL (0.8-1.0); MONOCYTES % (AUTO) 7.1 % (1.7-9.3); NEUTROPHILS # (AUTO) 7.6 K/uL (1.8-7.7); NEUTROPHILS % (AUTO) 72.4 % (42.2-75.2); PLATELET COUNT (AUTO) 237 K/uL (140-450); RED BLOOD CELL COUNT(AUTO) 4.15 MIL/uL (4.20-5.40); RED CELL DISTRIBUTION WIDTH 14.7 % (11.6-13.7); WHITE BLOOD COUNT (AUTO) 10.6 K/uL (4.8-10.8)
[2017-09-11 19:05] LABS: ANION GAP 12.5 (8-16); CARBON DIOXIDE 25.3 mmol/L (21-32); CREATININE 1.3 mg/dL (0.6-1.3); POTASSIUM 3.8 mmol/L (3.5-5.1)
[2017-09-11 19:12] LABS: BILIRUBIN,URINE NEGATIVE (NEGATIVE); BLOOD, URINE NEGATIVE (NEGATIVE); COLOR,URINE YELLOW (YELLOW); LEUKOCYTE ESTERASE ,URINE 2+ (NEGATIVE); NITRITE, URINE NEGATIVE (NEGATIVE); PH,URINE 5.5 (5.0-9.0); UGLUCOSE NEGATIVE (NEGATIVE)
[2017-09-11 19:13] LABS: APPEARANCE,URINE HAZY (CLEAR)
[2017-09-11 19:16] LABS: RBC,URINE 0-5 (RARE) /HPF (0-5)
[2017-09-11 19:17] LABS: WBC,URINE 20-60 /HPF (0-5)
[2017-09-11 19:20] LABS: ALBUMIN 2.8 g/dL (3.4-5.0); TOTAL BILIRUBIN 0.2 mg/dL (0.0-1.0)
--- NOTE | 2017-09-11 19:30 | NUR ---
REPORT RECEIVED FROM JOHN ALVARENGA.
[2017-09-11] MEDS ORDERED: MORPHINE SULFATE 4 MG/ML SYR IVP ONE (19:50)
[2017-09-11] MEDS ORDERED: NACL 0.9% 1,000 ML IV SCH (20:08)
[2017-09-11] MEDS ORDERED: ONDANSETRON 4 MG/2 ML VIAL IVP PRN (20:10)
[2017-09-11] MEDS ORDERED: MORPHINE SULFATE 2 MG/ML SYR IVP PRN (20:10)
[2017-09-11] MEDS ORDERED: MORPHINE SULFATE 4 MG/ML SYR IVP PRN (20:10)
[2017-09-11 20:45] VITALS: BP 130/85
--- NOTE | 2017-09-11 20:45 | NUR ---
RECEIVED PATIENT FROM HOTEL CLERK. PATIENT A&OX4. PATIENT DENIES PAIN. PATIENT HAS PICC LINE ACCESS TO LEFT UPPER ARM PATENT AND INTACT. N/S AT 75ML/HR. PATIENT HAS SACRAL WOUND, MINIMAL DRAINAGE. DRESSING APPLIES. PATIENT HAS WOUND TO LEFT ANKLE, MINIMAL DRAINAGE, DRESSING APPLIED. PATIENT ORIENTED TO UNIT AND ROOM. SAFETY MEASURES ENSURED. CALL LIGHT WITHIN REACH. WILL CONTINUE TO MONITOR.
--- NOTE | 2017-09-11 21:00 | NUR ---
Patient will be admitted to care of DR PARKER. Admited to [facility]. Will go to [id number]. Belongings list completed. Report to JOHN COLLIER.
[2017-09-11] MEDS: BLOOD GLUCOSE MONITORING 1 DEV DEV FS SCH (21:33)
[2017-09-12] VITALS: BP 125/82
--- NOTE | 2017-09-12 01:39 | NUR ---
PATIENT RESTING IN BED. NO SIGNS OR SYMPTOMS OF ACUTE DISTRESS NOTED. SAFETY MEASURES ENSURED. CALL LIGHT WITHIN REACH. WILL CONTINUE TO MONITOR.
[2017-09-12 06:37] LABS: BASOPHILS # (AUTO) 0.1 K/uL (0.00-0.22); BASOPHILS % (AUTO) 1.1 % (0.0-2.0); EOSINOPHILS # (AUTO) 0.4 K/uL (0-0.4); HEMATOCRIT 31.7 % (36-48); HEMOGLOBIN 10.3 g/dL (12.0-16.0); LYMPHOCYTES # (AUTO) 1.9 K/uL (2.5-16.5); LYMPHOCYTES % (AUTO) 24.8 % (20.5-51.1); MEAN CORPUSCULAR HEMOGLOBIN 27 pg (27-31); MEAN CORPUSCULAR HGB CONC 33 g/dL (33-37); MEAN CORPUSCULAR VOLUME 81 fL (80-94); MONOCYTES # (AUTO) 0.6 K/uL (0.8-1.0); MONOCYTES % (AUTO) 7.4 % (1.7-9.3); NEUTROPHILS # (AUTO) 4.8 K/uL (1.8-7.7); NEUTROPHILS % (AUTO) 61.7 % (42.2-75.2); PLATELET COUNT (AUTO) 254 K/uL (140-450); RED BLOOD CELL COUNT(AUTO) 3.91 MIL/uL (4.20-5.40); RED CELL DISTRIBUTION WIDTH 14.8 % (11.6-13.7); WHITE BLOOD COUNT (AUTO) 7.9 K/uL (4.8-10.8)
[2017-09-12] MEDS: BLOOD GLUCOSE MONITORING 1 DEV DEV FS SCH ×4 (06:37→20:31)
[2017-09-12 07:06] LABS: ALBUMIN 2.5 g/dL (3.4-5.0); ANION GAP 12.7 (8-16); CARBON DIOXIDE 23.9 mmol/L (21-32); CREATININE 1.1 mg/dL (0.6-1.3); POTASSIUM 3.6 mmol/L (3.5-5.1); TOTAL BILIRUBIN 0.3 mg/dL (0.0-1.0)
--- NOTE | 2017-09-12 07:11 | NUR ---
ENDORSED PLAN OF CARE TO AM RN. PATIENT IN STABLE CONDITION.
--- NOTE | 2017-09-12 07:12 | NUR ---
RECEIVED PATIENT REPORT AT BEDSIDE FROM NIGHTSHIFT NURSE. PATIENT JUST WOKE UP TO OUR PRESENCE. INTRODUCED MYSELF TO THE PATIENT AND UPDATED BOARD. PATIENT IS A&OX4 AT THIS TIME. NO SIGNS OF RESPIRATORY DISTRESS OR RESPIRATORY DEPRESSION. CALL LIGHT IN PLACE AND BED LOWERED. SIGNS ARE POSTED AND PATIENT HAS TWO FALL WRIST BANDS ON. ENCOURAGED PATIENT TO CALL IF SHE NEEDS ANYTHING. PATIENT IS IN STABLE CONDITION. WILL CONTINUE TO MONITOR PATIENT.
[2017-09-12 08:00] VITALS: BP 142/77
--- NOTE | 2017-09-12 08:38 | NUR ---
PATIENT HAS BEEN SCREENED AND CATEGORIZED HIGH NUTRITION RISK. PATIENT WILL BE SEEN WITHIN 1-2 DAYS OF ADMISSION. 09/11/18-09/12/[address]
[2017-09-12] MEDS: GABAPENTIN 300 MG CAP PO SCH ×2 (09:00→20:14)
[2017-09-12] MEDS: ENOXAPARIN 30 MG/0.3 ML SYR SUBQ SCH (09:46)
--- NOTE | 2017-09-12 10:00 | NUR ---
WOUND CARE EVALUATION NOTE: REASON FOR EVALUATION: RIGHT BKA STUMP S/P REVISION WOUND AND LEFT ANKLE PRESSURE ULCER COMPLETE SKIN ASSESSMENT DONE ON THIS 72 Y/O FEMALE PATIENT ADMITTED TO [facility], DUE TO AMA FROM SNF. PAST MEDICAL HISTORY INCLUDE OM S/P RIGHT BKA, CAD, HTN, DM AND RIGHT BREAST CA WITH HX OF MASTECTOMY. ALL ABOVE INFORMATION WAS OBTAINED FROM THE ADMISSION H&P AND PT. PT IS AAX4. LABS ARE WBC 7.9, H/H 10.3/31.7, GLUCOSE 136 AND ALBUMIN 2.5. PATIENT'S SKIN WARM TO TOUCH WNL, SKIN TURGOR GOOD. LEFT FOOT CAPILLARY REFILLED <3 SEC. TOENAILS ARE SHORT AND THICKENED, NO HAIR GROWTH, LEFT DORSAL PEDAL PULSES PRESENT. PT. EDUCATION GIVEN FOR WEIGHT SHIFTING SIDE TO SIDE BY HOLDING SIDE RAIL AND OFFLOAD HIPS. INITIAL PLAN OF CARE DISCUSSED WITH PRIMARY RN AND PT. PT VERBALIZE UNDERSTANDING. INTEGUMENTARY: RIGHT BKA STUMP S/P REVISION ON 09/05/2017, SURGICAL WOUND ,DRY AND CLEAN , MULTIPLE CHANDA IN PLACE 11 CM IN LENGTH LEFT ANKLE PRESSURE ULCER INJURY STAGE 3, WOUND BED IS PINK IN COLOR, MOIST, NO ODOR WOUND EDGE FLAT AND LILLIAN WOUND IS PINK. SACRALCOCCXY NON BLANCHABLE REDNESS 2X2 CM, SKIN INTACT RIGHT BUTTOCK MOISTURE ASSOCIATE DERMATITIS 1.5X1.5CM LEFT TOE AMPUTATION WITH OLD HEALED SURGICAL SCAR RECOMMENDATIONS: -VERIFICATION WITH SURGEON, NOT TO REMOVE CHANDA TO RIGHT STUMP AT THIS TIME -CLEANSE LEFT ANKLE WITH NS. PAT DRY APPLY THERAHONEY COVER WITH DRY DRESSING QD AND PRN IF SOILING -CLEANSE RIGHT BKA STUMP SURGICAL AREAS WITH NS, PAT DRY, COVER WITH DRY DRESSING QD -APPLY OPTIFORM TO SACRAL COCCYX AREA Q7 DAYS AND PRN IF SOILING -CLEANSE L BUTTOCK MAD WITH SOAP AND WATER, PAT DRY AND APPLY Z-GUARD AND COVER WITH OPTIFORM QD AND PRN IF SOILING -TURN AND REPOSITION PATIENT Q 2H -ASSESS AND MONITOR SKIN CONDITION DURING POSITION CHANGE, PLEASE PAY PARTICULAR ATTENTION LEFT ANKLE -OFFLOAD LEFT HEEL BY PLACING PILLOWS UNDER CALF AT ALL TIMES, UNLESS OTHERWISE CONTRAINDICATED -PRESSURE REDISTRIBUTION SURFACE THERAPY -KEEP SKIN CLEAN AND DRY AT ALL TIMES. MAY APPLY BODY LOTION TO DRYNESS AREA. RECOMMENDATIONS DISCUSSED WITH PRIMARY RN WILL FOLLOW UP PATIENT Q7- 10 DAYS AND PRN. PLEASE CONTACT WOUND CARE NURSE FOR ANY CONCERNS, QUESTIONS AND CHANGES IN SKIN CONDITION. Addendum: 09/12/17 at 1200 by Luciana Tinsley RN (Grace) ADD MEASUREMENT:LEFT ANKLE PRESSURE ULCER INJURY STAGE 3, 2X2X0.2 CM, WOUND BED IS PINK IN COLOR, MOIST, NO ODOR WOUND EDGE FLAT AND LILLIAN WOUND IS PINK.
--- NOTE | 2017-09-12 10:00 | NUR ---
I met with patient to discuss next level of care by MD recommendations. Patient agreed and stated that she wants to get better and go to another halfway Facility (SNF) because she did not feel well taken care at [facility]. I explained to patient the reasons why she was signed as AMA; I educated patient on the importance of staying in the facility (SNF) for the full treatment as the facility purpose is to provide her with the services she needs with out patient getting out of the facility for any appointment or court date as she is and can be excused since she is requiring that level of care. Patient understood and stated she did not know and she will not do that again in another facility. I informed patient that me and care transitions manager will work together on getting her care and medical needs provided to her with coordination of MD recommendations, and insurances approvals. She understood and stated she will rather go to [facility] or [facility]. She follow by saying " I know its not for sure I can go to those two places and I will go where I get accepted, a bed and the care I need; but I just would like to try those two places please" I informed patient that case manger and I will make great efforts for her preferences however;i t can not be guarantee. Patient agreed and thank me. Patient did not have any more questions at the time. bulbs farmworker and/or showcase maker will follow up as needed.
--- NOTE | 2017-09-12 10:30 | NUR ---
PATIENT IS AWAKE AT THIS TIME. NO SIGNS OF RESPIRATORY DISTRESS OR DEPRESSION. PATIENT DOES NOT HAVE PAIN. WILL CONTINUE TO MONITOR PATIENT.
--- NOTE | 2017-09-12 12:49 | NUR ---
09/12/2017 RD INITIAL ASSESSMENT COMPLETED PLEASE REFER TO NUTRITION ASSESSMENT UNDER CARE ACTIVITY FOR ESTIMATED NUTRITIONAL NEEDS. CONSIDER ADDITION OF DIABETIC RESTRICTIONS TO CURRENT DIET ORDER PT TO CONSUME >90% EST KCAL AND PROTEIN NEEDS WITHIN 2-[address] TO FOLLOW-UP IN 2-3 DAYS PATIENT IS HIGH RISK. ABELINO MARTINEZ, RD
[2017-09-12] MEDS: THERAHONEY GEL 42.5 GM TP SCH (13:00)
[2017-09-12] MEDS: Z-GUARD PASTE TP SCH (13:00)
[2017-09-12] MEDS: NACL 0.9% IRR 250 ML BOTTLE IR SCH (13:00)
--- NOTE | 2017-09-12 13:32 | NUR ---
FAXED INQUIRY TO [facility] [phone] SPOKE WITH [facility]. SHE ASKED ME TO FAX INQUIRY [phone] FAXED INQUIRY TO [facility] [phone] PHONE, SPOKE WITH SARWAT [phone]. 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
--- NOTE | 2017-09-12 14:16 | NUR ---
RECEIVED A CALL BACK FROM SARWAT FROM [facility]. NO ISOLATION BEDS. CALLED [facility] , SPOKE WITH [facility]. SHE SAID THAT THIS PATIENT OWES A BALANCE FROM A PREVIOUS ADMISSION. SHE WOULD HAVE TO SPEAK WITH THE TECHNICIAN SUPPORT ENGINEER. NO ISOLATION BEDS. CALLED [facility] AND SPOKE WITH ANDREW. FAXED INQUIRY TO [phone] PHONE [phone]
--- NOTE | 2017-09-12 14:50 | NUR ---
PATIENT IS AWAKE WATCHING TELEVISION. PATIENT SHOWS NO SIGNS OF RESPIRATORY DISTRESS OR RESPIRATORY DEPRESSION. WILL CONTINUE TO MONITOR PATIENT.
--- NOTE | 2017-09-12 15:07 | NUR ---
SPOKE WITH CEDRIC FROM [employer], [id number]. I FAXED HER THE FACE SHEET AND THE ORDER FOR SNF. SHE GAVE ME THE AUTH FOR THE SNF AND TRANSPORT, WHICH IS THE SAME NUMBER. AUTH [id number]. JUST CALL HER AND LET HER KNOW WHERE SHE WENT.
--- NOTE | 2017-09-12 15:17 | NUR ---
CALLED [facility] AND SPOKE WITH ANISHA. SHE SAID SHE DOESN'T HAVE A CONTRACT WITH [facility]. I CALL [facility], NO ISOLATION BEDS.
--- NOTE | 2017-09-12 15:19 | NUR ---
CALLED [facility] AND SPOKE WITH SARWAT. NO ISOLATION BEDS.
[2017-09-12 15:55] VITALS: BP 145/75
[2017-09-12] MEDS: HYDROcodone/APAP 5/325 MG 1 TAB TAB PO PRN (16:00)
--- NOTE | 2017-09-12 16:48 | NUR ---
RECEIVED A CALL FROM ANDREW FROM [facility]. SHE IS UNABLE TO TAKE THIS PATIENT.
--- NOTE | 2017-09-12 19:19 | NUR ---
GAVE PATIENT REPORT TO NIGHTSHIFT NURSE AT BEDSIDE. PATIENT IS IN STABLE CONDITION.
--- NOTE | 2017-09-12 19:19 | NUR ---
RECEIVED HANDOFF REPORT FROM AM RN. PATIENT A&OX4. PATIENT DENIES PAIN. IV SITE PATENT AND INTACT. NO SIGNS OR SYMPTOMS OF ACUTE DISTRESS NOTED. SAFETY MEASURES ENSURED. CALL LIGHT WITHIN REACH. WILL CONTINUE TO MONITOR.
[2017-09-12] MEDS: CEFEPIME 1,000 MG in DEXTROSE 5% 50 ML IV SCH (20:30)
[2017-09-12] MEDS: clonazePAM 0.5 MG TAB PO SCH (20:30)
--- NOTE | 2017-09-12 20:30 | NUR ---
ABX STARTED INFUSING
[2017-09-12] MEDS: INSULIN LISPRO SLIDING SCALE 100 UNITS/ML VIAL SUBQ PRN (20:36)
--- NOTE | 2017-09-12 21:00 | NUR ---
ABX FINISHED INFUSING.
[2017-09-13] VITALS: BP 151/77
[2017-09-13] MEDS: HYDROcodone/APAP 5/325 MG 1 TAB TAB PO PRN ×2 (04:12→13:07)
[2017-09-13] MEDS ORDERED: PANTOPRAZOLE 40 MG TABEC PO SCH (06:30)
[2017-09-13] MEDS: BLOOD GLUCOSE MONITORING 1 DEV DEV FS SCH ×3 (06:36→16:31)
[2017-09-13] MEDS: INSULIN LISPRO SLIDING SCALE 100 UNITS/ML VIAL SUBQ PRN (06:53)
--- NOTE | 2017-09-13 07:19 | NUR ---
ENDORSED PLAN OF CARE TO AM RN. PATIENT IN STABLE CONDITION
--- NOTE | 2017-09-13 07:20 | NUR ---
PT RESTING IN BED AWAKE AOX4. RIGHT BKA STUMP PERFORMED BY DR. LOCKHART ON 09/05/2017. LEFT ANKLE PRESSURE ULCER STAGE 3 AND LEFT SACRAL WOUND. PICC LINE LEFT UA N/S 75 ML/HR. ON ROOM AIR. NO S/S OF RESPIRATORY DISTRESS OR DISTRESS AT THIS TIME. PT IS STABLE. BED IN LOWEST POSITION. SAFETY/FALL PRECAUTIONS ARE IN PLACE. CALL LIGHT WITHIN REACH. WILL CONTINUE TO MONITOR.
[2017-09-13 08:00] VITALS: BP 128/73
[2017-09-13] MEDS: ENOXAPARIN 30 MG/0.3 ML SYR SUBQ SCH (08:38)
[2017-09-13] MEDS: GABAPENTIN 300 MG CAP PO SCH ×2 (08:39→19:50)
[2017-09-13] MEDS: CEFEPIME 1,000 MG in DEXTROSE 5% 50 ML IV SCH (08:57)
[2017-09-13] MEDS ORDERED: HYDROCHLOROTHIAZIDE 25 MG TAB PO SCH (09:00)
[2017-09-13] MEDS ORDERED: guaiFENesin DM 200/20 MG-10 ML 10 ML UDC PO PRN (10:15)
--- NOTE | 2017-09-13 11:28 | NUR ---
ASSISTED PT TO USE THE BED MYERS. URINE WAS CLEAR YELLOW WITH NO ODORS. CHANGED SACRAL DRESSING USING OPTIFOAM. PT TOLERATED DRESSING CHANGE WELL. REQUESTING HELP TO WASH HER HAIR. ASHLEY SANDOVAL IN PT ROOM CHANGING BED SHEETS AND HELPING HER WASH HER HAIR. PT STABLE AT THIS TIME. WILL CONTINUE TO MONITOR.
--- NOTE | 2017-09-13 11:34 | NUR ---
Social Service Note: Snf follow up: I received 'nico randolph stating isolation is colonized. Per Benjamin from [facility] / , patient has an outstanding balance of over $2,000 from previous admission. I inquired if they could accept patient if she paid balance, she stated she was going to check with her sales support administrator and call me back. Per Komal from [facility] , they don't have a contract with [facility] unable to accept patient. Per Lorna from [facility] , they don't have a contract with [facility] unable to accept patient. I faxed inquiry to [facility] . I informed patient I have to contact snfs that are contracted with [facility], she verbalized understanding. Addendum: 09/13/17 at 1148 by Saniya Nieves SS Per Faina from [facility], they don't have a contract with [facility].
[2017-09-13] MEDS ORDERED: CYANOCOBALAMIN 1000 MCG/ML VIAL SUBQ SCH (12:00)
[2017-09-13] MEDS: NACL 0.9% IRR 250 ML BOTTLE IR SCH (13:09)
[2017-09-13] MEDS ORDERED: ACETAMINOPHEN 325 MG TAB PO PRN (13:10)
[2017-09-13] MEDS: THERAHONEY GEL 42.5 GM TP SCH (13:10)
[2017-09-13] MEDS: Z-GUARD PASTE TP SCH (13:10)
--- NOTE | 2017-09-13 13:20 | NUR ---
ASSISTED PT TO BEDPAN. URINE IS CLEAR YELLOW WITH NO FOUL ODOR. PT COMPLAINING OF HEADACHE. PAIN MEDICATION ADMINISTERED. CLOSED WINDOW BLINDS REQUESTED BY PT TO HELP ALLEVIATE HEADACHE. VITAMIN B12 ADMINISTERED AND TOLERATED WELL. NO S/S OF RESPIRATORY DISTRESS OR DISCOMFORT. CALL LIGHT WITHIN REACH. SAFETY/FALL PRECAUTIONS IN PLACE. WILL CONTINUE TO MONITOR.
--- NOTE | 2017-09-13 13:47 | NUR ---
Social Service Note: I faxed inquiry to [facility] , per Azul from [facility] patient has been accepted and may go to room 11A. I met with patient at bedside, provided her with a snf update. Per patient, she does not want to be transfer to [facility], she reported she prefers to return home with home health services, charge nurse Dorman made aware. Addendum: 09/13/17 at 1442 by Saniya LEON I was informed by patient she changed her mind and now is in agreement with going to [facility], charge nurse Dorman made aware.
--- NOTE | 2017-09-13 15:26 | NUR ---
SPOKE TO MODESTO LOPEZ AT [facility] AND GAVE REPORT.
[2017-09-13 16:00] VITALS: BP 137/77
--- NOTE | 2017-09-13 17:35 | NUR ---
PT RESTING IN BED. NO S/S OF RESPIRATORY DISTRESS OR DISCOMFORT. SAFETY/FALL PRECAUTIONS IN PLACE. CALL LIGHT WITHIN REACH. WILL CONTINUE TO MONITOR.
--- NOTE | 2017-09-13 18:40 | NUR ---
ASSISTED PT TO USE THE BED MYERS. PT STABLE. NO S/S OF RESPIRATORY DISTRESS. CALL LIGHT WITHIN REACH. WILL CONTINUE TO MONITOR.
--- NOTE | 2017-09-13 19:30 | NUR ---
ENDORSED PT TO RETAIL PERSONAL BANKER NURSE FOR CONTINUITY OF CARE. PT STABLE AT THIS TIME.
--- NOTE | 2017-09-13 19:37 | NUR ---
RECEIVED FROM AM RN IN BED AWAKE AND ALERT. PT. FOR TRANSFER TO [facility] /SNF PLANNED . PT. HAS NO COMPLAINTS OF PAIN AT THIS TIME. CALL LIGHT WITH IN REACH. ORIENTED X 4. CLEAR SPEECH. DX. OF LEG PAIN . AWARE OF TRANSFER .
[2017-09-13] MEDS: clonazePAM 0.5 MG TAB PO SCH (19:51)
--- NOTE | 2017-09-13 19:55 | NUR ---
PT. TRANSPORTED TO [facility] BY [facility]. AWAKE AND ALERT. ABLE TO VERBALIZE NEEDS WELL. NO COMPLAINTS DONE. ALL PAPER WORKS HANDED TO HER AND TRANSPORTER. REPORT WAS GIVEN BY AM RN TO [facility] CHARGE NURSE/RECIEVING. WITH PICC LINE TO RIGHT UPPER ARM 2 PORTS INTACT AND PATENT. TO CONTINUE WITH IVF ABT IN [facility]. ALL BELONGINGS WITH PT.
== END 2017-09-13 20:10 | DRG 565 ==
LOC: MED 16:34 → MTU 20:12 → OBSVTOIN 20:12
PROVIDERS: ADMIT Internal Medicine; ATTEND Internal Medicine
DX: T87.43 Infection of amputation stump, right lower extremity (principal); I69.954 Hemiplegia and hemiparesis following unspecified cerebrovascular disease affecting left non-dominant side; E44.0 Moderate protein-calorie malnutrition; E11.9 Type 2 diabetes mellitus without complications; Z85.3 Personal history of malignant neoplasm of breast; I10 Essential (primary) hypertension; Z89.511 Acquired absence of right leg below knee; K21.9 Gastro-esophageal reflux disease without esophagitis; I25.10 Atherosclerotic heart disease of native coronary artery without angina pectoris; Z90.10 Acquired absence of unspecified breast and nipple; F32.9 Major depressive disorder, single episode, unspecified; Z83.3 Family history of diabetes mellitus; Z82.49 Family history of ischemic heart disease and other diseases of the circulatory system; Z89.429 Acquired absence of other toe(s), unspecified side; Y83.5 Amputation of limb(s) as the cause of abnormal reaction of the patient, or of later complication, without mention of misadventure at the time of the procedure; Y92.89 Other specified places as the place of occurrence of the external cause
CPT/HCPCS: 36415; 71045; 80053; 81001; 82550; 82948; 83605; 84484; 85025; 85610; 85730; 87040; 87081; 87086; 87186; 93005; 96360; 97110; 97140; 99285; J0692; J1650; J1815; J3420; J7030; J7060; Q0092